=== PATIENT | female | born 1980 | race Caucasian/White ===

== ENCOUNTER 2017-10-30 06:49 | Emergency (ER) | payer OTHER ==
[2017-10-30 07:02] VITALS: BP 135/82
[2017-10-30] MEDS ORDERED: DEXAMETHASONE 10 MG/ML VIAL PO STA (07:36)
[2017-10-30] MEDS ORDERED: HYDROcod/ACETAM 5/325 MG TABLET PO STA (07:37)
[2017-10-30] MEDS ORDERED: LIDOCAINE PATCH 5% TOP PRN (07:37)
--- NOTE | 2017-10-30 07:39 | ED Physician Documentation ---
History of Present Illness - Stated complaint Stated Complaint: HIP PX - Chief complaint Chief Complaint: Ext Problem - Additonal information Additional information: hx from pt 36 f long standing L hip pain hip "popped" several times about a week ago - SI region - no fall trauma disclocation etc seen and rx naproxen and flexeril has appt for manipulation.chiro later this week inc pain denies preg Review of Systems : denies: Now EGA Musculoskeletal: reports: Joint pain PD PAST MEDICAL HISTORY - Past Medical History Past Medical History: Yes Musculoskeletal: Other Other Past Medical History: Carpal Tunnel Syndrome - Past Surgical History Past Surgical History: Yes /IMAGING SPECIALIST: section - Present Medications Home Medications: Ambulatory Orders Medication Instructions Recorded Confirmed Carisoprodol [Soma] 350 mg PO Q8H PRN #15 tablet 10/30/17 Cyclobenzaprine [Flexeril] 1 tab PO DAILY 10/30/17 10/30/17 Lidocaine Patch 5% [Lidoderm Patch] 1 each TOP DAILY PRN #10 patch 10/30/17 Naproxen 500 mg PO BID PRN 10/30/17 10/30/17 - Allergies Allergies/Adverse Reactions: Allergies Allergy/AdvReac Type Severity Reaction Status Date / Time No Known Drug Allergies Allergy Verified 10/30/17 07:03 - Social History Does the pt smoke?: No Smoking Status: Former smoker Does the pt drink ETOH?: Yes Does the pt have substance abuse?: No - Immunizations Immunizations are current?: Yes - POLST Patient has POLST: No PD ED PE NORMAL - Vitals Vital signs reviewed: Yes - Cardiac Cardiac: RRR - Respiratory Respiratory: No respiratory distress, Clear bilaterally - Abdomen Abdomen: Non tender - Back Back: No spinal TTP, Other (TTP near L SI region s redness warmth or swelling) - Extremities Extremities: Other (L hip joint s redness swelling warmth, able to range, MSV intact) Results - Vitals Vitals: Vital Signs - 24 hr 10/30/17 06:50 Temperature 36.7 C Heart Rate 96 Respiratory 18 Rate Blood Pressure 135/82 H O2 Saturation 99 Oxygen O2 Source Room air PD MEDICAL DECISION MAKING - ED course ED course: recurrent L hip pain seems to be sot tissue in etiology nl neuro exam and no signs of infection will tx symptomatically and do not think imaging is needed Departure - Departure Disposition: 01 Home, Self Care Clinical Impression: Hip pain Qualifiers: Laterality: left Qualified Code(s): M25.552 - Pain in left hip Condition: Good Follow-Up: ADELIA BUSTOS MD [Primary Care Provider] - Prescriptions: Carisoprodol [Soma] 350 mg PO Q8H PRN #15 tablet PRN Reason: muscle spasm Lidocaine Patch 5% [Lidoderm Patch] 1 each TOP DAILY PRN #10 patch PRN Reason: Pain Comments: The decadron given in the ER should significantly decrease the inflammation and pain. It will last 3-5 days. Try soma instead of flexeril Continue naproxen. And try the lidocaine patches - apply one to the most painful spot for up to 12 hr a day Forms: Activity restrictions
== END 2017-10-30 08:41 | disposition home or self-care (01) ==
LOC: ED 06:49
DX: M25.552 Pain in left hip (principal); Z87.891 Personal history of nicotine dependence
CPT/HCPCS: 99283; A9270

== ENCOUNTER 2018-09-18 09:52 | Outpatient (CLI) | payer OTHER | END 2018-09-18 09:53 | disposition home or self-care (01) | LOC: SC 09:52 | PROVIDERS: ATTEND Internal Medicine Pulmonary Disease | DX: R06.81 Apnea, not elsewhere classified (principal); G47.10 Hypersomnia, unspecified; R06.83 Snoring; G47.8 Other sleep disorders; R41.89 Other symptoms and signs involving cognitive functions and awareness | CPT/HCPCS: 99203; 99212 ==

== ENCOUNTER 2018-09-24 10:34 | Outpatient (CLI) | payer OTHER | END 2018-09-24 10:35 | disposition home or self-care (01) | LOC: SC 10:34 | PROVIDERS: ATTEND Internal Medicine Pulmonary Disease | DX: R53.83 Other fatigue (principal) | CPT/HCPCS: 99212; 99213 ==

== ENCOUNTER 2019-04-29 09:45 | Outpatient (CLI) | payer OTHER ==
--- NOTE | 2019-04-29 14:35 | MRI Report ---
Reason: PAIN IN LEFT SHOULDER Procedure Date: 04/29/2019 Accession Number: [id number] / [id number] Procedure: MRI - Shoulder LT W/O CPT Code: FULL RESULT: EXAM: LEFT SHOULDER MRI WITHOUT CONTRAST EXAM DATE: 04/29/2019 10:53 AM. CLINICAL HISTORY: Pain in left shoulder. COMPARISON: None. TECHNIQUE: Multiplanar, multisequence T1-weighted and fluid-sensitive sequences of the shoulder without contrast. Other: None. FINDINGS: Acromioclavicular Region: The acromion is type II. The acromioclavicular joint is unremarkable. No subacromial/subdeltoid bursal fluid. Glenohumeral Region: No subluxation. No effusion or loose bodies. The articular cartilage is unremarkable. The humeral head is internally rotated. Bone Marrow: No fracture, marrow edema or bone lesions. Labrum: The labrum is unremarkable on this nonarthrographic study. Musculature/Rotator Cuff: There is mild supraspinous tendinosis. There is a low-grade partial-thickness tear of the humeral surface fibers of supraspinatus at its anteriormost limit. The tear is difficult to measure due to internal rotation of the humeral head. Infraspinatus and subscapularis appear unremarkable. No edema or fatty atrophy. Biceps Tendon: The long head of the biceps tendon and biceps isi are intact. Other: The subcutaneous tissues are unremarkable. IMPRESSION: 1. Mild supraspinatus tendinosis with a low-grade partial-thickness tear of the anterior humeral surface fibers. [facility]
== END 2019-04-29 09:46 | disposition home or self-care (01) ==
LOC: DI 09:45
DX: M75.102 Unspecified rotator cuff tear or rupture of left shoulder, not specified as traumatic (principal)